=== PATIENT | female | born 1985 | race Caucasian/White ===

== ENCOUNTER 2017-08-13 18:08 | Emergency (ER) | payer MEDICAID, OTHER ==
--- NOTE | 2017-08-13 18:15 | EDPHY ---
H & P Time Seen by Provider: 08/13/17 18:09 HPI/ROS: CHIEF COMPLAINT: Anxiety attack HISTORY OF PRESENT ILLNESS: The patient is a 31-year-old female who called 911 because she was having anxiety attack. She states that anxiety triggers asthma.. Medics felt that she was having inspiratory and expiratory wheezing and gave her DuoNeb. Her symptoms have now completely resolved. The she denies recent illness or infection. She states that she was stressed because her sister abandoned her here in town and she that is in [place]. She denies chest pain or abdominal pain. REVIEW OF SYSTEMS: Constitutional: denies: chills, fever, recent illness, recent injury EENTM: denies: blurred vision, double vision, nose congestion Respiratory: See HPI Cardiac: denies: chest pain, irregular heart rate, lightheadedness, palpitations Gastrointestinal/Abdominal: denies: abdominal pain, diarrhea, nausea, vomiting, blood streaked stools Genitourinary: denies: dysuria, frequency, hematuria, pain Musculoskeletal: denies: joint pain, muscle pain Skin: denies: lesions, rash, jaundice, bruising Neurological: denies: headache, numbness, paresthesia, tingling, dizziness, weakness Hematologic/Lymphatic: denies: blood clots, easy bleeding, easy bruising Immunologic/allergic: denies: HIV/AIDS, transplant EXAM: GENERAL: Well-appearing, well-nourished and in no acute distress. HEAD: Atraumatic, normocephalic. EYES: Pupils equal round and reactive to light, extraocular movements intact, sclera anicteric, conjunctiva are normal. ENT: TMs normal, nares patent, oropharynx clear without exudates. Moist mucous membranes. NECK: Normal range of motion, supple without lymphadenopathy or JVD. LUNGS: Breath sounds clear to auscultation bilaterally and equal. No wheezes rales or rhonchi. HEART: Regular rate and rhythm without murmurs, rubs or gallops. ABDOMEN: Soft, nontender, normoactive bowel sounds. No guarding, no rebound. No masses appreciated. BACK: No CVA tenderness, no spinal tenderness, step-offs or deformities EXTREMITIES: Normal range of motion, no pitting or edema. No clubbing or cyanosis. NEUROLOGICAL: Cranial nerves II through XII grossly intact. Normal speech, normal gait. 5/5 strength, normal movement in all extremities, normal sensation PSYCH: Anxious, tearful SKIN: Warm, dry, normal turgor, no visible rashes or lesions. Source: Patient, EMS Exam Limitations: No limitations - Medical/Surgical History Hx Asthma: No Hx Chronic Respiratory Disease: No Hx Diabetes: No Hx Cardiac Disease: No Hx Renal Disease: No Hx Cirrhosis: No Hx Alcoholism: No Other PMH: Anxiety, asthma - Family History Significant Family History: No pertinent family hx - Social History Smoking Status: Former smoker Alcohol Use: Sober Drug Use: None Constitutional: Initial Vital Signs Temperature (C) 37.3 C 08/13/17 18:12 Heart Rate 97 08/13/17 18:12 Respiratory Rate 18 08/13/17 18:12 Blood Pressure 115/69 08/13/17 18:12 O2 Sat (%) 99 08/13/17 18:12 O2 Delivery Mode Room Air Allergies/Adverse Reactions: codeine Allergy (Verified 08/13/17 18:12) Penicillins Allergy (Verified 08/13/17 18:12) Medical Decision Making ED Course/Re-evaluation: I suspect that the patient primarily had an anxiety attack. No wheezing or stridor currently. We will observe. 715 the patient has not had any further symptoms. She is eager to go. She declines further treatment. Differential Diagnosis: Partial list of the Differential diagnosis considered include but were not limited to; anxiety attack, asthma and although unlikely based on the history and physical exam, I also considered pneumothorax, pneumonia, acute coronary disease, arrhythmia. I discussed these differential diagnoses and the plan with the patient as well as the usual and expected course. The patient understands that the diagnosis is provisional and that in medicine we are not always correct and that further workup is often warranted. Usual and customary warnings were given. All of the patient's questions were answered. The patient was instructed to return to the emergency department should the symptoms at all worsen or return, otherwise to followup with the physician as we discussed. Departure - Departure Disposition: Home, Routine, Self-Care Clinical Impression: Anxiety attack Condition: Fair Instructions: Anxiolysis in Adults (ED) Referrals: Edie Carrillo MD [Medical Doctor] - As per Instructions
[2017-08-13 19:18] VITALS: BP 101/78
== END 2017-08-13 19:17 | disposition home or self-care (01) ==
LOC: EDUNIT#
DX: F41.9 Anxiety disorder, unspecified (principal); J45.909 Unspecified asthma, uncomplicated; Z87.891 Personal history of nicotine dependence

== ENCOUNTER 2017-09-03 17:58 | Emergency (ER) | payer OTHER, MEDICAID ==
[2017-09-03 18:28] VITALS: BP 109/69
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
[2017-09-03] MEDS ORDERED: IBUPROFEN 600 MG TAB PO ONE (18:54)
== END 2017-09-03 19:56 | disposition home or self-care (01) ==
DX: S00.03XA Contusion of scalp, initial encounter (principal); S46.912A Strain of unspecified muscle, fascia and tendon at shoulder and upper arm level, left arm, initial encounter; J45.909 Unspecified asthma, uncomplicated; F17.200 Nicotine dependence, unspecified, uncomplicated; V89.2XXA Person injured in unspecified motor-vehicle accident, traffic, initial encounter; Y92.410 Unspecified street and highway as the place of occurrence of the external cause

== ENCOUNTER 2018-07-29 12:58 | Emergency (ER) | payer MEDICAID ==
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
[2018-07-29] MEDS ORDERED: CYCLOBENZAPRINE 10 MG TAB PO ONE (14:55)
[2018-07-29] MEDS ORDERED: KETOROLAC 30 MG/1 ML SDV IVP ONE (15:12)
[2018-07-29] MEDS ORDERED: CALCIUM GLUC 10% 1 GM/10 ML VIAL IVP ONE (15:16)
[2018-07-29 16:28] VITALS: BP 112/71
== END 2018-07-29 15:45 | disposition home or self-care (01) ==
LOC: EDUNIT#
DX: M54.2 Cervicalgia (principal)
CPT/HCPCS: 96374; J0610; J1885